=== PATIENT | female | born 1930 | race Caucasian/White ===

== ENCOUNTER → 2016-11-14 | Outpatient (CLI) | payer OTHER | LOC: BHFA 14:45 | PROVIDERS: ATTEND Internal Medicine Cardiovascular Disease | DX: I48.91 Unspecified atrial fibrillation (principal); I10 Essential (primary) hypertension ==

== ENCOUNTER 2018-01-03 07:53 | Emergency (ER) | payer OTHER ==
[2018-01-03 08:01] VITALS: BP 146/106; PULSE 70; RESP 16; TEMP 98.4; O2SAT 94
--- NOTE | 2018-01-03 08:04 | EDPHY ---
HPI/HX/ROS/PE/MDM Narrative: CHIEF COMPLAINT: Facial injury HISTORY OF PRESENT ILLNESS: The patient is an 86 y/o female arriving via EMS from [facility] complaining of forehead pain secondary to falling out of bed this morning. She says she was lying in bed and rolled off the side striking her right forehead on the oxygen concentrator. She denies loss of consciousness, neck or back pain, weakness, paresthesias, or other injuries from the fall. Her medical history includes hypertension, peripheral edema, and atrial fibrillation for which she takes Pradaxa and aspirin. No recent illness, fever, chills, chest pain, shortness of breath, palpitations , vomiting, diarrhea, urinary complaints, headache, lightheadedness. REVIEW OF SYSTEMS: Aside from elements discussed in the HPI, a comprehensive 10-point review of systems was reviewed and is negative. PAST MEDICAL HISTORY: 1. Atrial fibrillation - digoxin, Pradaxa, aspirin 2. Hypertension 3. Hypercholesterolemia 4. Hypoxemia 5. Peripheral edema - Lasix SOCIAL HISTORY: [facility]. DNR paperwork transferred with patient from facility. 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 Son lives in [place]. VITAL SIGNS: Reviewed by me GENERAL: Well-developed, well-nourished, resting comfortably in no respiratory distress. HEENT: Abrasion right forehead and right cheek; eczema over face. Eyes: No icterus, no injection. Mouth: moist mucous membranes. No erythema or lesions. Neck: supple with no adenopathy. Inconsistent low neck tenderness almost at the level of T1. LUNGS: Clear to auscultation bilaterally, no wheezes, rhonchi or rales. CARDIAC: Irregularly irregular rate and rhythm, no rubs, murmurs or gallops. ABDOMEN: Soft, nontender, nondistended, bowel sounds normal. BACK: No CVA tenderness. Atraumatic EXTREMITIES: Bilateral knee abrasion, left knee ecchymosis No edema. Range of motion is normal throughout. NEURO: Alert and oriented, grossly nonfocal. Equal sfdc architect strength bilaterally. Normal leg raise SKIN: Warm and dry, no rash. PSYCHIATRIC: Normal mentation, no agitation. Portions of this note were transcribed by a medical accountant. I personally performed a history, physical exam, medical decision making, and confirmed accuracy of information the transcribed note. ED Course: This is a pleasant 87 y/o female on Pradaxa who presents with right-sided facial abrasions secondary to rolling out of bed and striking her head on the oxygen concentrator this morning. No loss of consciousness, neuro deficits, vomiting, or reported midline spinal pain, though she does have inconsistent low neck tenderness almost at the level of T1. Normal neuro exam. Plan for IV, labs, head and neck CTs, and wound care. Head CT: nothing acute Neck CT: nothing acute Reassessed patient and discussed findings. Exam remains unchanged. Labs are unremarkable. 1L IV NS ordered. Plan for discharge home in good condition. Wound care, fall prevention, and return precautions discussed. She is happy with plan for discharge home. Note: Patient's son provided transport home. He asked that we add additional fasting labs which had been previously ordered by Dr. Jeremías EDWARDS. This was done as a courtesy to the patient and the family so she does not need to return for a blood draw. MDM: Differential diagnosis of this patient's traumatic fall was considered including but not limited to intracranial injury, long bone and pelvic bone fracture, spinal injury, intrathoracic injury, extremity injury, intra- abdominal injury, lacerations, abrasions, and contusions. - Data Points Imaging Results: Imaging Impressions Cervical Spine CT 01/03/18 08:04 Impression: 1. There is a right frontal scalp hematoma. 2. Advanced senescent features, with no acute intracranial abnormality identified on this unenhanced CT evaluation. 3. Small air-fluid level in the dependent portion of the right maxillary sinus. UNENHANCED CT SCAN OF THE CERVICAL SPINE Technique: A multidetector unenhanced helical CT scan was obtained from the clivus caudally through the upper thoracic spine, with images reformatted at 1.50 mm increments, and are reviewed in soft tissue, bone, and lung windows. Parasagittal and paracoronal reconstructed images are reviewed on the workstation. The DFOV is 13.5 cm. A dose reduction protocol was used. 3D reformatted images were also reviewed on the computer workstation by the radiologist using [employer] software, given the history of trauma. Findings: Again, there is a dextrocervical scoliosis which currently measures 16 degrees on this supine study. The cervical vertebral body heights are notable for minor anterior height reduction at C5, within the context of ventral and dorsal traction osteophytes which are noted at the C4-C5 and C5-C6 levels, where there is severe degenerative disk space narrowing. There is also moderate posterior C3-C4 degenerative disk space narrowing. There is 2 mm of C4 posterolisthesis of C5, and 2 mm of C6 anterolisthesis above C7. There is no acute fracture, or facet malalignment, although there is multilevel facet degenerative hypertrophy, left greater than right. The interspinous distances are normal. The craniocervical junction is normal. The predental space, and the atlantoaxial lateral mass alignment is normal. The base and the tip of the dens are normal. There are central canal and neural foraminal stenoses of variable degree, most pronounced at the C3-C4, C4-C5, C5-C6, and C6-C7 levels. There is no paravertebral or epidural hematoma identified. The prevertebral soft tissues are normal, as are the lung apices. Impression: Multilevel degenerative changes, with no acute cervical osseous abnormality. If there is further clinical concern regarding the patient's symptoms, correlative MR imaging could be considered, if otherwise not contraindicated. Findings were discussed with Risa Jiménez MD at 9:35 AM, on 01/03/2018. Head CT 01/03/18 08:04 Impression: 1. There is a right frontal scalp hematoma. 2. Advanced senescent features, with no acute intracranial abnormality identified on this unenhanced CT evaluation. 3. Small air-fluid level in the dependent portion of the right maxillary sinus. UNENHANCED CT SCAN OF THE CERVICAL SPINE Technique: A multidetector unenhanced helical CT scan was obtained from the clivus caudally through the upper thoracic spine, with images reformatted at 1.50 mm increments, and are reviewed in soft tissue, bone, and lung windows. Parasagittal and paracoronal reconstructed images are reviewed on the workstation. The DFOV is 13.5 cm. A dose reduction protocol was used. 3D reformatted images were also reviewed on the computer workstation by the radiologist using [employer] software, given the history of trauma. Findings: Again, there is a dextrocervical scoliosis which currently measures 16 degrees on this supine study. The cervical vertebral body heights are notable for minor anterior height reduction at C5, within the context of ventral and dorsal traction osteophytes which are noted at the C4-C5 and C5-C6 levels, where there is severe degenerative disk space narrowing. There is also moderate posterior C3-C4 degenerative disk space narrowing. There is 2 mm of C4 posterolisthesis of C5, and 2 mm of C6 anterolisthesis above C7. There is no acute fracture, or facet malalignment, although there is multilevel facet degenerative hypertrophy, left greater than right. The interspinous distances are normal. The craniocervical junction is normal. The predental space, and the atlantoaxial lateral mass alignment is normal. The base and the tip of the dens are normal. There are central canal and neural foraminal stenoses of variable degree, most pronounced at the C3-C4, C4-C5, C5-C6, and C6-C7 levels. There is no paravertebral or epidural hematoma identified. The prevertebral soft tissues are normal, as are the lung apices. Impression: Multilevel degenerative changes, with no acute cervical osseous abnormality. If there is further clinical concern regarding the patient's symptoms, correlative MR imaging could be considered, if otherwise not contraindicated. Findings were discussed with Risa Jiménez MD at 9:35 AM, on 01/03/2018. Imaging: Discussed imaging studies w/ call or contact centre team leader Radiologist, I viewed and interpreted images myself Laboratory Results: Laboratory Results 01/03/18 07:53 01/03/18 07:53 01/03/18 01/03/18 01/03/18 07:53 07:53 07:53 WBC RBC Hgb Hct MCV MCH MCHC RDW Plt Count MPV Neut % (Auto) Lymph % (Auto) [place] % (Auto) Eos % (Auto) Baso % (Auto) Nucleat RBC Rel Count Absolute Neuts (auto) Absolute Lymphs (auto) Absolute Monos (auto) Absolute Eos (auto) Absolute Basos (auto) Absolute Nucleated RBC Immature Gran % Immature Gran # Sodium 144 mEq/L mEq/L (135-145) Potassium 4.2 mEq/L mEq/L (3.5-5.2) Chloride 102 mEq/L mEq/L (97-110) Carbon Dioxide 26 mEq/l mEq/l (22-31) Anion Gap 16 mEq/L mEq/L (8-16) BUN 18 mg/dL mg/dL (7-23) Creatinine 0.9 mg/dL mg/dL (0.6-1.0) Estimated GFR 59 Glucose 122 mg/dL H mg/dL (70-100) Hemoglobin A1c 6.7 % H D % (4.0-6.0) Estim Average Glucose 146 mg/dL H mg/dL (68-126) Calcium 9.9 mg/dL mg/dL (8.5-10.4) Triglycerides 488 mg/dL H mg/dL (35-135) Cholesterol 140 mg/dL mg/dL (140-220) 01/03/18 07:53 WBC 7.39 10^3/uL 10^3/uL (3.80-9.50) RBC 4.57 10^6/uL 10^6/uL (4.18-5.33) Hgb 14.9 g/dL g/dL (12.6-16.3) Hct 44.1 % % (38.0-47.0) MCV 96.5 fL fL (81.5-99.8) MCH 32.6 pg pg (27.9-34.1) MCHC 33.8 g/dL g/dL (32.4-36.7) RDW 13.5 % % (11.5-15.2) Plt Count 206 10^3/uL 10^3/uL (150-400) MPV 10.4 fL fL (8.7-11.7) Neut % (Auto) 47.3 % % (39.3-74.2) Lymph % (Auto) 40.3 % % (15.0-45.0) [place] % (Auto) 8.4 % % (4.5-13.0) Eos % (Auto) 3.0 % % (0.6-7.6) Baso % (Auto) 0.7 % % (0.3-1.7) Nucleat RBC Rel Count 0.0 % % (0.0-0.2) Absolute Neuts (auto) 3.50 10^3/uL 10^3/uL (1.70-6.50) Absolute Lymphs (auto) 2.98 10^3/uL 10^3/uL (1.00-3.00) Absolute Monos (auto) 0.62 10^3/uL 10^3/uL (0.30-0.80) Absolute Eos (auto) 0.22 10^3/uL 10^3/uL (0.03-0.40) Absolute Basos (auto) 0.05 10^3/uL 10^3/uL (0.02-0.10) Absolute Nucleated RBC 0.00 10^3/uL 10^3/uL (0-0.01) Immature Gran % 0.3 % % (0.0-1.1) Immature Gran # 0.02 10^3/uL 10^3/uL (0.00-0.10) Sodium Potassium Chloride Carbon Dioxide Anion Gap BUN Creatinine Estimated GFR Glucose Hemoglobin A1c Estim Average Glucose Calcium Triglycerides Cholesterol Medications Given: Discontinued Medications Sodium Chloride (Ns) 500 mls @ 1,000 mls/hr IV EDNOW ONE PRN Reason: Protocol Stop: 01/03/18 10:09 Last Admin: 01/03/18 09:49 Dose: 500 mls General Time Seen by Provider: 01/03/18 07:55 Initial Vital Signs: Initial Vital Signs Temperature (C) 36.9 C 01/03/18 07:53 Heart Rate 70 01/03/18 07:53 Respiratory Rate 16 01/03/18 07:53 Blood Pressure 146/106 H 01/03/18 07:53 O2 Sat (%) 94 01/03/18 07:53 O2 Delivery Mode Room Air Allergies/Adverse Reactions: egg Allergy (Verified 10/06/14 20:34) Vomiting Home Medications: Medication Instructions Recorded Aspirin [Aspirin 81mg (*)] 81 mg PO DAILY 09/12/13 Calcium Carbonate [Oyster Shell 500 mg PO BID 09/12/13 Calcium 500 mg (*)] Dabigatran Etexilate Mesyl 150 mg PO BID 09/12/13 [Pradaxa 150 MG (*)] Hydrochlorothiazide [HCTZ (*)] 12.5 mg PO DAILY 09/12/13 Lisinopril [Zestril 5 mg (*)] 5 mg PO DAILY 09/12/13 Metoprolol Tartrate [Lopressor 25 37.5 mg PO BID 09/12/13 mg (*)] Mirtazapine [Remeron 15 mg (RX)] 15 mg PO HS 09/12/13 Multivitamins [Multivitamin (*)] 1 each PO DAILY 09/12/13 Potassium Cl [Klor-Con 20 meq (*)] 20 meq PO DAILY 09/12/13 Simvastatin [Zocor 20 mg] 20 mg PO DAILY18 09/12/13 Vitamin B Complex [Vitamin B 1 each PO DAILY 09/12/13 Complex (OTC)] Acetaminophen [Tylenol ES 500 mg 1,000 mg PO TID #0 tab 10/10/14 (*)] Digoxin [Lanoxin 0.125 mg] 0.125 mg PO DAILY10 #0 tab 10/10/14 Magnesium Hydroxide [Milk of 30 ml PO DAILY PRN #0 ml 10/10/14 Magnesia (*)] Polyethylene Glycol 3350 [Miralax 17 gm PO DAILY PRN #0 pkt 10/10/14 17 gm (*)] Sennosides/Docusate Sodium 1 - 2 tab PO BID #0 tab 10/10/14 [Senokot-S] oxyCODONE IR [Oxycodone Ir (*)] 5 mg PO Q6 PRN #0 tab 10/10/14 Departure - Departure Disposition: Home, Routine, Self-Care Clinical Impression: Facial abrasion Qualifiers: Encounter type: initial encounter Qualified Code(s): S00.81XA - Abrasion of other part of head, initial encounter Fall Qualifiers: Encounter type: initial encounter Qualified Code(s): W19.XXXA - Unspecified fall, initial encounter Condition: Good Instructions: Fall Prevention for Older Adults (ED), Abrasion (ED) Additional Instructions: 1. Use 500mg of Tylenol every 4-6 hours as needed for pain over the next few days. 2. Keep wounds clean and dry. You can apply a thin layer of Bacitracin over abrasions for the next few days. 3. Follow up with your primary care provider for any unimproved symptoms over the weekend. 4. Return to the ED for any worsening of condition. Referrals: Klaus Prado DO [Doctor of Osteopathy] - As per Instructions Report Scribed for: Risa Jiménez Report Scribed by: Charlene Merino Date of Report: 01/03/18 Time of Report: 08:04
[2018-01-03 08:11] LABS: PLATELET COUNT 206 10^3/uL (150-400)
[2018-01-03] MEDS ORDERED: NS 500 ML IV ONE (09:40)
== END 2018-01-03 12:21 | disposition home or self-care (01) ==
LOC: EDUNIT#
DX: S00.81XA Abrasion of other part of head, initial encounter (principal); I10 Essential (primary) hypertension; E86.9 Volume depletion, unspecified; Z79.82 Long term (current) use of aspirin; W06.XXXA Fall from bed, initial encounter; Y92.89 Other specified places as the place of occurrence of the external cause; Y93.89 Activity, other specified

== ENCOUNTER 2019-01-21 07:52 | Emergency (ER) | payer OTHER ==
--- NOTE | 2019-01-21 08:00 | EDPHY ---
HPI/HX/ROS/PE/MDM Narrative: CHIEF COMPLAINT: Fall HPI: This patient is an anticoagulated (Eliquis, ASA) 88 year old female with history of atrial fibrillation, hypertension, and hyperlipidemia. She arrives today via EMS from her assisted living facility after a fall out of bed this morning. She states she rolled out of bed and fell "square on the top of my head ". She denies any loss of consciousness. She denies any head or neck pain, no extremity numbness or paresthesias. She was hypertensive in transport, vitals otherwise stable. She currently has no specific complaints, and presents mainly due to her anticoagulation status. No recent illness or other reported trauma. Patient has CO MOST form present at bedside: she is DNR, limited interventions. REVIEW OF SYSTEMS: A comprehensive 10 system review of systems is otherwise negative aside from elements mentioned in the history of present illness and medical decision making. PMH: Hypertension (Metoprolol). Hyperlipidemia (Simvastatin). Atrial fibrillation (Digoxin, Eliquis, ASA). SOCIAL HISTORY: , retired, lives in [place]. PHYSICAL EXAM: General:Patient is alert, in no acute distress. ENT:Eyes are normal to inspection. ENT inspection normal. Neck: Normal inspection. Full range of motion. Respiratory:No respiratory distress. Breath sounds normal bilaterally. Cardiovascular: Regular rate and rhythm. Strong peripheral pulses. Normal cap refill. Abdomen:The abdomen is nontender to palpation. There are no peritoneal signs. There are normal bowel sounds. Back: Normal to inspection. No tenderness to palpation. Skin: Normal color. No rash. Warm and dry. Extremities: Normal appearance. Full range of motion. Neuro: Oriented x3. Normal motor function. Normal sensory function. ED Course: 07:53 Met EMS on arrival Anticoagulated 88 y/o female presents following a fall out of bed this morning. She landed on her head, but has no specific complaints currently. She is pleasant and alert with no focal neurologic deficits. Plan for CT head to r/o acute intracranial abnormalities. 08:[address] Francisco, radiologist. CT negative for acute processes. Reassessed patient. Discussed imaging results. She continues to feel well. Plan to discharge home in good condition. Follow up and return precautions discussed. She is comfortable with this plan. - Data Points Imaging Results: Imaging Impressions Head CT 01/21/19 07:57 Impression: 1. No acute intracranial findings. 2. Diffuse cerebral atrophy with periventricular and subcortical low attenuation consistent with chronic microvascular ischemic gliosis. 3. Additional findings as above. Findings discussed with Jamal Gonzalez MD 01/21/2019 at 8:29. Imaging: Discussed imaging studies w/ calliope player Radiologist General Initial Vital Signs: Initial Vital Signs Temperature (C) 36.6 C 01/21/19 07:55 Heart Rate 79 01/21/19 07:55 Respiratory Rate 16 01/21/19 07:55 Blood Pressure 169/95 H 01/21/19 07:55 O2 Sat (%) 93 01/21/19 07:55 O2 Delivery Mode Room Air Allergies/Adverse Reactions: egg Allergy (Verified 10/06/14 20:34) Vomiting Home Medications: Medication Instructions Recorded RX: Aspirin [Aspirin 81mg (*)] 81 mg PO DAILY 09/12/13 RX: Calcium Carbonate [Oyster 500 mg PO BID 09/12/13 Shell Calcium 500 mg (*)] RX: Lisinopril [Zestril 5 mg (*)] 5 mg PO DAILY 09/12/13 RX: Metoprolol Tartrate [Lopressor 37.5 mg PO BID 09/12/13 25 mg (*)] RX: Mirtazapine [Remeron 15 mg 15 mg PO HS 09/12/13 (RX)] RX: Multivitamins [Multivitamin 1 each PO DAILY 09/12/13 (*)] RX: Potassium Cl [Klor-Con 20 meq 20 meq PO DAILY 09/12/13 (*)] RX: Simvastatin [Zocor 20 mg] 20 mg PO DAILY18 09/12/13 RX: Vitamin B Complex [Vitamin B 1 each PO DAILY 09/12/13 Complex (OTC)] RX: Acetaminophen [Tylenol ES 500 1,000 mg PO TID #0 tab 10/10/14 mg (*)] RX: Magnesium Hydroxide [Milk of 30 ml PO DAILY PRN #0 ml 10/10/14 Magnesia (*)] RX: Polyethylene Glycol 3350 17 gm PO DAILY PRN #0 pkt 10/10/14 [Miralax 17 gm (*)] RX: Sennosides/Docusate Sodium 1 - 2 tab PO BID #0 tab 10/10/14 [Senokot-S] Eliquis 01/21/19 Departure - Departure Clinical Impression: Fall Qualifiers: Encounter type: initial encounter Qualified Code(s): W19.XXXA - Unspecified fall, initial encounter Instructions: Fall Prevention (ED) Additional Instructions: Follow-up with your primary doctor within 2-3 days. Return to the Emergency Department for severe headache, vomiting, vision changes , confusion, fever or other concerns. Referrals: Tricia Jiang MD [Primary Care Provider] - As per Instructions Report Scribed for: Jamal Gonzalez Report Scribed by: Moraima Fletcher Date of Report: 01/21/19 Time of Report: 08:00 Physician Review and Approval Statement: Portions of this note were transcribed by an ED scribe. I personally performed the history, physical exam, and medical decision making; and confirm the accuracy of the information in the transcribed note.
[2019-01-21 09:25] VITALS: BP 134/83
== END 2019-01-21 10:20 | disposition home or self-care (01) ==
LOC: EDUNIT#
DX: S09.90XA Unspecified injury of head, initial encounter (principal); I10 Essential (primary) hypertension; I48.91 Unspecified atrial fibrillation; E78.5 Hyperlipidemia, unspecified; W06.XXXA Fall from bed, initial encounter; Y99.9 Unspecified external cause status; Z79.01 Long term (current) use of anticoagulants